=== PATIENT | male | born 1990 | race Caucasian/White ===

== ENCOUNTER 2017-12-12 17:58 | Emergency (ER) | payer SELFPAY ==
[~2017-12-12] VITALS: Ht 172.7 cm; Wt 67.1 kg
[2017-12-12] MEDS ORDERED: IV NORMAL SALINE 1000ML BAG 1,000 ML IV ONE (18:30)
[2017-12-12 19:53] LABS: BASO % 0 % (0-3); EOS # 0.1 x10^3/uL (0.0-0.7); EOS % 1 % (0-3); HEMATOCRIT 45.5 % (39.0-53.0); HEMOGLOBIN 15.3 g/dL (13.0-17.5); LYMPH # 1.9 x10^3/uL (1.0-4.8); LYMPH % 21 % (24-48); MEAN CORPUSCULAR HEMOGLOBIN 30 pg (25-35); MEAN CORPUSCULAR HGB CONC 34 g/dL (31-37); MEAN CORPUSCULAR VOLUME 91 fL (79-100); MONO # 0.3 x10^3/uL (0.0-1.1); MONO % 3 % (0-9); NEUT # 6.9 x10^3uL (1.8-7.7); NEUT % 75 % (31-73); PLATELET COUNT 196 x10^3/uL (140-400); RED BLOOD COUNT 5.01 x10^6/uL (4.30-5.70); RED CELL DISTRIBUTION WIDTH 14.3 % (11.5-14.5); WHITE BLOOD COUNT 9.2 x10^3/uL (4.0-11.0)
[2017-12-12 20:04] LABS: CALCIUM 8.7 mg/dL (8.5-10.1); GFR 88.3; POTASSIUM 3.9 mmol/L (3.5-5.1)
[2017-12-12 20:30] VITALS: BP 140/75
--- NOTE | 2017-12-12 20:41 | PHYS DOC ---
Past Medical History Past Medical History: No Pertinent History Past Surgical History: No Surgical History Additional Information: 2-3 CIGARETTES PER DAY Alcohol Use: Occasionally Drug Use: None Adult General Chief Complaint Chief Complaint: HEAT EXPOSURE HPI HPI Patient is a 27 year old male who presents with feeling lightheaded. 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 He states he was working all day today and drank very little liquid. He was reaching to crab picker some heavy boxes when he's felt a little lightheaded. The patient states he had to sit down which did improve his symptoms when he continued to feel lightheaded so EMS was called. He did not have palpitations or chest pain. He has no focal neurologic complaints. And route to the hospital, he was given some IV fluids by EMS and he is feeling mildly improved at this time. The patient is otherwise healthy 27-year-old male. He has no chronic health conditions although he has been previously evaluated for heat related illness in the emergency department. Review of Systems Review of Systems Constitutional: Denies fever or chills Eyes: Denies change in visual acuity, redness, or eye pain HENT: Denies nasal congestion or sore throat Respiratory: Denies cough or shortness of breath Cardiovascular: No additional information not addressed in HPI GI: Denies abdominal pain, nausea, vomiting, bloody stools or diarrhea Musculoskeletal: Denies back pain or joint pain Integument: Denies rash Neurologic: Denies headache Endocrine: Denies polyuria All other systems were reviewed and found to be within normal limits, except as documented in this note. Current Medications Current Medications Current Medications Medications (Trade) Dose Ordered Sig/[facility] Start Time Stop Time Status Last Admin Dose Admin Sodium Chloride 1,000 ml @ 1,000 mls/hr 1X ONCE 12/12/17 18:30 12/12/17 19:29 DC 12/12/17 18:30 1,000 MLS/HR Allergies Allergies Allergies Coded Allergies Type Severity Reaction Last Updated Verified No Known Drug Allergies 11/09/13 No Physical Exam Physical Exam Constitutional: Well developed, well nourished, no acute distress, non-toxic appearance HENT: Normocephalic, atraumatic, bilateral external ears normal, oropharynx moist Eyes: PERRLA, EOMI, conjunctiva normal Neck: Normal range of motion, no tenderness, supple Cardiovascular:Heart rate regular rhythm, no murmur Lungs & Thorax: Bilateral breath sounds clear to auscultation Abdomen: Bowel sounds normal, soft, no tenderness Skin: Warm, dry, no erythema Extremities: No tenderness Neurologic: Alert and oriented X 3 Psychologic: Affect normal Current Patient Data Vital Signs Vital Signs Date Time Temp Pulse Resp B/P (MAP) Pulse Ox O2 Delivery O2 Flow Rate FiO2 12/12/17 17:58 98.2 77 15 131/83 (99) 96 Room Air 98.2 Lab Values Laboratory Tests Test 12/12/17 19:45 White Blood Count 9.2 x10^3/uL (4.0-11.0) Red Blood Count 5.01 x10^6/uL (4.30-5.70) Hemoglobin 15.3 g/dL (13.0-17.5) Hematocrit 45.5 % (39.0-53.0) Mean Corpuscular Volume 91 fL (79-100) Mean Corpuscular Hemoglobin 30 pg (25-35) Mean Corpuscular Hemoglobin Concent 34 g/dL (31-37) Red Cell Distribution Width 14.3 % (11.5-14.5) Platelet Count 196 x10^3/uL (140-400) Neutrophils (%) (Auto) 75 % (31-73) H Lymphocytes (%) (Auto) 21 % (24-48) L Monocytes (%) (Auto) 3 % (0-9) Eosinophils (%) (Auto) 1 % (0-3) Basophils (%) (Auto) 0 % (0-3) Neutrophils # (Auto) 6.9 x10^3uL (1.8-7.7) Lymphocytes # (Auto) 1.9 x10^3/uL (1.0-4.8) Monocytes # (Auto) 0.3 x10^3/uL (0.0-1.1) Eosinophils # (Auto) 0.1 x10^3/uL (0.0-0.7) Basophils # (Auto) 0.0 x10^3/uL (0.0-0.2) Sodium Level 139 mmol/L (136-145) Potassium Level 3.9 mmol/L (3.5-5.1) Chloride Level 103 mmol/L (98-107) Carbon Dioxide Level 29 mmol/L (21-32) Anion Gap 7 (6-14) Blood Urea Nitrogen 9 mg/dL (8-26) Creatinine 1.0 mg/dL (0.7-1.3) Estimated GFR (Cockcroft-Gault) 88.3 Glucose Level 75 mg/dL (70-99) Calcium Level 8.7 mg/dL (8.5-10.1) Troponin I Quantitative < 0.017 ng/mL (0.000-0.055) Laboratory Tests 12/12/17 19:45 Laboratory Tests 12/12/17 19:45 EKG EKG No STEMI Interpretation Time: 18:40 Radiology/Procedures Radiology/Procedures [] Course & Med Decision Making Course & Med Decision Making Pertinent Labs and Imaging studies reviewed. (See chart for details) Patient was evaluated in the emergency department for heat related illness. He was given 2 L of [place]. He did feel subjectively improved. Routine labs were collected and there were no acute abnormalities. His EKG was nonacute. His troponin was not elevated. Ultimately, the patient is discharged home. He is advised to hydrate heavily over the next 24 hours. He is encouraged to come back to the ER for any new or worsening symptoms or follow up with his primary care physician. Dragon Disclaimer Dragon Disclaimer This electronic medical record was generated, in whole or in part, using a voice recognition dictation system. Departure Departure Impression: Primary Impression: Heat exhaustion Disposition: 01 HOME, SELF-CARE Condition: GOOD Referrals: NO PCP (PCP) Patient Instructions: Heat Disorders-Brief DAMIEN ROBERSON DO Dec 12, 2017 20:41
--- NOTE | 2017-12-13 06:05 | EKG ---
[facility] [address] [place] [id number] Test Date: 2017-12-12 Test Time: 18:36:53 Pat Name: ENDER ALBARRAN Department: Room: Gender: M Special Events Director: : 1990 Requested By: DAMIEN ROBERSON Order Number: [id number] Reading MD: Benito Kerr MD Measurements Intervals [place] Rate: 85 P: 78 NH: 146 QRS: 100 QRSD: 76 T: 64 QT: 348 QTc: 414 Interpretive Statements SINUS RHYTHM Electronically Signed On 12-13-2017 11:30:28 CDT by Benito Kerr MD
== END 2017-12-12 20:39 | disposition home or self-care (01) ==
LOC: ER 17:58
DX: T67.5XXA Heat exhaustion, unspecified, initial encounter (principal); F17.210 Nicotine dependence, cigarettes, uncomplicated; X58.XXXA Exposure to other specified factors, initial encounter; Y93.89 Activity, other specified; Y92.89 Other specified places as the place of occurrence of the external cause; Y99.8 Other external cause status
CPT/HCPCS: 36415; 80048; 84484; 85025; 93005; 96360; 96361; 99285; J7030